=== PATIENT | female | born 1990 | race African-American/Black ===

== ENCOUNTER 2020-11-25 17:25 | Emergency (ER) | payer MEDICAID ==
[~2020-11-25] VITALS: Ht 170.2 cm; Wt 91.0 kg
[2020-11-25 17:29] VITALS: BP 134/75
== END 2020-11-25 18:55 | disposition left against medical advice (07) ==
LOC: ER 17:25
DX: Z53.21 Procedure and treatment not carried out due to patient leaving prior to being seen by health care provider (principal)
CPT/HCPCS: 93005

== ENCOUNTER 2022-02-09 22:40 | Emergency (ER) | payer MEDICAID ==
[~2022-02-09] VITALS: Ht 172.7 cm; Wt 91.0 kg
[2022-02-09 23:27] VITALS: BP 121/90
[2022-02-10] MEDS ORDERED: ACETAMINOPHEN 325MG TABLET PO STA (02:13)
[2022-02-10] MEDS ORDERED: METOCLOPRAMIDE HCL 10MG TABLET PO STA (02:13)
[2022-02-10 02:45] LABS: CLARITY URINE CLOUDY (CLEAR); COLOR URINE YELLOW (YELLOW); KETONES URINE TRACE (NEGATIVE); LEUKOCYTE ESTERASE URINE 1+ (NEGATIVE); NITRITE URINE NEGATIVE (NEGATIVE); OCCULT BLOOD URINE NEGATIVE (NEGATIVE); PROTEIN URINE TRACE (NEGATIVE); SPECIFIC GRAVITY URINE 1.028 (1.005-1.030); UROBILINOGEN URINE 0.2 E.U./dL (0.2-1.0)
[2022-02-10] MEDS ORDERED: NITR-87 PO (04:03)
[2022-02-10] MEDS ORDERED: MECL-159 PO (04:03)
[2022-02-10] MEDS ORDERED: ACET-2708 PO (04:03)
== END 2022-02-10 04:16 | disposition home or self-care (01) ==
LOC: ER 22:40
DX: R51.9 Headache, unspecified (principal); N39.0 Urinary tract infection, site not specified
CPT/HCPCS: 36415; 81003; 81025; 84702; 99283; J8597

== ENCOUNTER 2023-09-20 01:41 | Emergency (ER) | payer MEDICAID, OTHER ==
[~2023-09-20] VITALS: Ht 170.2 cm; Wt 108.4 kg
[~2023-09-20 01:41] MED LIST: ACET-2708 PO; MECL-299 PO; NITR-87 PO
[2023-09-20 02:10] VITALS: O2SAT 100
[2023-09-20 04:59] LABS: BASOPHILS % 0.4 % (0.0-2.0); DIFFERENTIAL COMMENT 0; EOSINOPHILS % 1.2 % (0.0-5.0); HEMATOCRIT. 40.6 % (36.0-48.0); HEMOGLOBIN. 13.7 g/dL (12.0-16.0); LYMPHOCYTES % 28.7 % (20.0-50.0); MEAN CORPUSCULAR HEMOGLOBIN 26.9 pg (28.0-32.0); MEAN CORPUSCULAR HGB CONC 33.8 g/dL (31.0-37.0); MEAN CORPUSCULAR VOLUME 79.8 fL (81.0-99.0); MEAN PLATELET VOLUME 9.5 fl (7.4-10.4); MONOCYTES % 4.8 % (2.0-8.0); NEUTROPHILS % 64.9 % (40.0-76.0); PLATELET 263 x1000/uL (130-400); RED BLOOD CELL COUNT 5.09 mill/uL (4.2-5.4); WHITE BLOOD COUNT 8.9 x1000/uL (4.5-11.0)
[2023-09-20 05:00] LABS: CHLORIDE 109 mEq/L (98-107); SODIUM 136 mEq/L (136-145)
[2023-09-20 05:01] LABS: CARBON DIOXIDE 22 mEq/L (21-32)
[2023-09-20 05:02] LABS: CALCIUM 9.4 mg/dL (8.7-10.4)
[2023-09-20 05:06] LABS: CREATININE 0.9 mg/dL (0.6-1.0); GLUCOSE 109 mg/dL (70-105)
[2023-09-20 05:07] LABS: UREA NITROGEN BLOOD 8 mg/dL (9-23)
[2023-09-20 05:08] LABS: ALANINE AMINOTRANSFERASE 14 IU/L (10-49); ALBUMIN 4.9 g/dL (3.2-4.8); ASPARTATE AMINOTRANSFERASE 14 IU/L (<34)
[2023-09-20 05:09] LABS: BILIRUBIN TOTAL 0.9 mg/dL (0.1-1.0); PROTEIN TOTAL 8.4 g/dL (6.0-8.3)
[2023-09-20 05:10] LABS: HCG SCREEN NEGATIVE
[2023-09-20 05:28] VITALS: BP 134/68; PULSE 78; RESP 14; TEMP 97.3
== END 2023-09-20 05:29 | disposition home or self-care (01) ==
LOC: ER 01:41
DX: R20.0 Anesthesia of skin (principal); I10 Essential (primary) hypertension; Z88.5 Allergy status to narcotic agent
CPT/HCPCS: 36415; 80053; 84703; 85025; 93005; 99284

== ENCOUNTER 2024-06-24 08:42 | Emergency (ER) | payer OTHER ==
[~2024-06-24] VITALS: Ht 175.3 cm; Wt 84.0 kg
[2024-06-24 08:47] VITALS: BP 135/90; PULSE 66; RESP 14; TEMP 97.8; O2SAT 100
[2024-06-24] MEDS: LISINOPRIL 10MG TABLET PO ONE (09:35)
[2024-06-24] MEDS ORDERED: LISI10TA26 MT (10:06)
== END 2024-06-24 10:06 | disposition home or self-care (01) ==
LOC: ER 08:42
DX: I10 Essential (primary) hypertension (principal); Z79.899 Other long term (current) drug therapy; Z88.5 Allergy status to narcotic agent
CPT/HCPCS: 99283

== ENCOUNTER 2025-05-06 19:23 | Emergency (ER) | payer MEDICAID, OTHER ==
[~2025-05-06] VITALS: Ht 172.7 cm; Wt 111.0 kg
[~2025-05-06 19:23] MED LIST changes: +LISI10TA26 MT
[2025-05-06 19:38] VITALS: TEMP 36.9; O2SAT 98
[2025-05-06 20:54] LABS: BASOPHILS % 0.5 % (0.0-2.0); EOSINOPHILS % 3.8 % (0.0-5.0); HEMATOCRIT. 42.1 % (36.0-48.0); HEMOGLOBIN. 14.2 g/dL (12.0-16.0); LYMPHOCYTES % 29.9 % (20.0-50.0); MEAN PLATELET VOLUME 9.5 fl (7.4-10.4); MONOCYTES % 8.3 % (2.0-8.0); NEUTROPHILS % 57.5 % (40.0-76.0); PLATELET 241 x1000/uL (130-400); RED BLOOD CELL COUNT 5.39 mill/uL (4.2-5.4); RED CELL DISTRIBUTION WIDTH 14.1 % (11.6-14.6)
[2025-05-06 21:10] LABS: COLOR URINE YELLOW (YELLOW); GLUCOSE URINE NEGATIVE (NEGATIVE); KETONES URINE NEGATIVE (NEGATIVE); LEUKOCYTE ESTERASE URINE 1+ (NEGATIVE); NITRITE URINE NEGATIVE (NEGATIVE); OCCULT BLOOD URINE NEGATIVE (NEGATIVE); PH URINE 5.5 (4.5-8.0); PROTEIN URINE NEGATIVE (NEGATIVE); SPECIFIC GRAVITY URINE 1.023 (1.005-1.030); UROBILINOGEN URINE 0.2 E.U./dL (0.2-1.0)
[2025-05-06 21:12] LABS: CREATININE 0.9 mg/dL (0.6-1.0)
[2025-05-06 21:13] LABS: UREA NITROGEN BLOOD 8 mg/dL (9-23)
[2025-05-06 21:15] LABS: TROPONIN I HIGH SENSITIVITY < 4 ng/L (3.0-34)
[2025-05-06 21:51] LABS: CLARITY URINE SL HAZY (CLEAR)
[2025-05-06 21:57] LABS: BACTERIA URINE TRACE; RBC URINE NONE SEEN /hpf (0-2); SQUAMOUS EPITHELIAL CELL URINE 2+ /lpf (RARE/1+); WBC URINE 0-2 /hpf (0-2)
[2025-05-06 22:19] LABS: HCG SCREEN NEGATIVE
[2025-05-06] MEDS: HYDROXYZINE 25MG TABLET PO ONE (22:28)
[2025-05-06] MEDS: AMLODIPINE 5MG TABLET PO ONE (22:28)
[2025-05-06 23:00] VITALS: BP 137/94; PULSE 75; RESP 18; O2SAT 99
== END 2025-05-06 23:01 | disposition home or self-care (01) ==
LOC: ER 19:23
DX: F41.9 Anxiety disorder, unspecified (principal); I10 Essential (primary) hypertension; Z79.899 Other long term (current) drug therapy; Z88.5 Allergy status to narcotic agent
CPT/HCPCS: 36415; 71045; 80048; 81003; 84484; 84703; 85025; 93005; 99285

== ENCOUNTER 2025-05-30 04:36 | Emergency (ER) | payer MEDICAID ==
[~2025-05-30] VITALS: Ht 170.2 cm; Wt 104.0 kg
[2025-05-30 04:46] VITALS: O2SAT 99
[2025-05-30 05:53] LABS: CREATININE 0.9 mg/dL (0.6-1.0)
[2025-05-30 05:54] LABS: UREA NITROGEN BLOOD 10 mg/dL (9-23)
[2025-05-30 05:55] LABS: TROPONIN I HIGH SENSITIVITY 5 ng/L (3.0-34)
[2025-05-30 06:22] LABS: BASOPHILS % 0.7 % (0.0-2.0); EOSINOPHILS % 5.6 % (0.0-5.0); HEMATOCRIT. 39.1 % (36.0-48.0); HEMOGLOBIN. 13.5 g/dL (12.0-16.0); LYMPHOCYTES % 42.5 % (20.0-50.0); MEAN PLATELET VOLUME 9.6 fl (7.4-10.4); MONOCYTES % 5.6 % (2.0-8.0); NEUTROPHILS % 45.6 % (40.0-76.0); PLATELET 247 x1000/uL (130-400); RED BLOOD CELL COUNT 5.09 mill/uL (4.2-5.4); RED CELL DISTRIBUTION WIDTH 14.2 % (11.6-14.6)
[2025-05-30 07:14] LABS: HCG SCREEN NEGATIVE
[2025-05-30 08:25] LABS: TROPONIN I HIGH SENSITIVITY < 4 ng/L (3.0-34)
[2025-05-30 10:35] VITALS: BP 135/90; PULSE 72; RESP 17; TEMP 36.7; O2SAT 99
== END 2025-05-30 10:36 | disposition left against medical advice (07) ==
LOC: ER 04:36 → CMPBEDREQ 05-31 08:01
DX: R07.89 Other chest pain (principal); Z79.899 Other long term (current) drug therapy; Z98.890 Other specified postprocedural states; Z88.5 Allergy status to narcotic agent
CPT/HCPCS: 36415; 71045; 80048; 84484; 84703; 85025; 93005; 99285